=== PATIENT | male | born 1980 | race Caucasian/White ===

== ENCOUNTER 2022-03-26 07:32 | Emergency (ER) | payer BC ==
[~2022-03-26] VITALS: Ht 177.8 cm; Wt 90.9 kg
[2022-03-26] MEDS ORDERED: ibuprofen 200mg tablet PO ONE (07:50)
--- NOTE | 2022-03-26 07:54 | NUR ---
REPORTED FEVER AND SXS TO MD HIRAM MD TO PLACE FURTHER ORDERS FOR WORK-UP
[2022-03-26] MEDS ORDERED: normal saline 1000ML IV soln IVB ONE (07:55)
[2022-03-26] MEDS ORDERED: NO HOME MEDS (08:16)
[2022-03-26 08:18] LABS: BASOPHILS % (AUTO) 0.4 % (0-1); EOSINOPHILS % (AUTO) 0.3 % (0-6); HEMATOCRIT 43.8 % (42.0-52.0); HEMOGLOBIN 14.9 g/dl (14.0-17.9); LYMPHOCYTES # (AUTO) 0.8 X10'3 (1.1-4.8); LYMPHOCYTES % (AUTO) 13.2 % (21-51); MEAN CORPUSCULAR HEMOGLOBIN 29.1 PG (27.0-31.0); MEAN CORPUSCULAR HGB CONC 34.1 g/dL (33.0-36.5); MEAN CORPUSCULAR VOLUME 85.5 FL (78-98); MEAN PLATELET VOLUME 7.6 FL (7.4-10.4); MONOCYTES # (AUTO) 0.5 X10'3 (0-0.9); MONOCYTES % (AUTO) 8.1 % (2-12); NEUTROPHILS # (AUTO) 4.7 X10'3 (1.8-7.7); PLATELET COUNT 179 X10'3 (140-440); RED BLOOD COUNT 5.12 X10'6 (4.70-6.10); RED CELL DISTRIBUTION WIDTH 13.2 % (11.5-14.5)
[2022-03-26 08:29] LABS: ALANINE AMINOTRANSFERASE 180 U/L (12-78); ALBUMIN 3.7 G/DL (3.4-5.0); ALBUMIN/GLOBULIN RATIO 1.1 (1.1-1.5); ALKALINE PHOSPHATASE 89 IU/L (46-116); ANION GAP 10 (8-16); ASPARTATE AMINO TRANSFERASE 109 U/L (10-37); BILIRUBIN,TOTAL 0.4 MG/DL (0.1-1.0); BLOOD UREA NITROGEN 12 MG/DL (7-18); BUN/CREATININE RATIO 8.1 (5.4-32.0); C-REACTIVE PROTEIN 5.81 MG/DL (0.0-0.5); CHLORIDE 95 MMOL/L (99-107); CREATININE 1.48 MG/DL (0.60-1.10); GLUCOSE 107 MG/DL (70-104); POTASSIUM 4.3 MMOL/L (3.5-5.1); SODIUM 130 MMOL/L (135-145); TOTAL CARBON DIOXIDE 25.4 MMOL/L (24-32); TOTAL PROTEIN 7.2 G/DL (6.4-8.2); eGFR 52 ML/MIN
--- NOTE | 2022-03-26 08:56 | NUR ---
Stool sample collected and sent to lab.
[2022-03-26] MEDS ORDERED: metroNIDAZOLE 500mg tablet PO ONE (11:20)
[2022-03-26] MEDS ORDERED: dicyclomine 10 MG capsule PO ONE (11:20)
[2022-03-26 11:37] VITALS: BP 143/80
[2022-03-26 11:59] LABS: URINE AMPHETAMINE SCREEN NEGATIVE (Neg); URINE BARBITUATE SCREEN NEGATIVE (Neg); URINE BENZODIAZEPINES SCREEN NEGATIVE (Neg); URINE CANNABINOID SCREEN POSITIVE (Neg); URINE COCAINE SCREEN NEGATIVE (Neg); URINE METHADONE SCREEN NEGATIVE (Neg); URINE OPIATE SCREEN NEGATIVE (Neg); URINE PHENCYCLIDINE SCREEN NEGATIVE (Neg)
[2022-03-26] MEDS ORDERED: METR-159 PO (13:37)
[2022-03-28 10:42] LABS: HBSAG SCREEN Negative (Negative); HEP A AB, IGM Negative (Negative); HEPATITIS C ANTIBODY <0.1 s/co ratio (0.0-0.9)
== END 2022-03-26 13:50 | disposition home or self-care (01) ==
LOC: ER 07:33
DX: R74.01 Elevation of levels of liver transaminase levels (principal); Z20.822 Contact with and (suspected) exposure to COVID-19; A09 Infectious gastroenteritis and colitis, unspecified; Z79.899 Other long term (current) drug therapy
CPT/HCPCS: 36415; 80053; 80074; 80305; 80320; 84145; 85025; 86140; 87045; 87046; 87502; 87503; 87635; 89055; 93005; 96360; 96361; 99285; C9803; J7030